=== PATIENT | male | born 1965 | race Two or more races ===

== ENCOUNTER 2021-02-11 11:16 | Inpatient (IN) | payer OTHER ==
[2021-02-11] VITALS (21 sets, daily range): BP systolic 125–171; BP diastolic 65–104
[~2021-02-11] VITALS: Ht 167.6 cm; Wt 814.2 kg
[2021-02-11] MEDS ORDERED: INSU100V3 SQ (12:23)
[2021-02-11] MEDS ORDERED: ZINC1CAP3 PO (12:23)
[2021-02-11] MEDS ORDERED: HYDR4TAB4 PO (12:23)
[2021-02-11] MEDS ORDERED: ASCO-495 PO (12:23)
[2021-02-11] MEDS ORDERED: DEXT50DI8 IV (12:23)
[2021-02-11] MEDS ORDERED: ACET-868 PO (12:23)
[2021-02-11] MEDS ORDERED: MULT-24 PO (12:23)
[2021-02-11] MEDS ORDERED: CYAN-51 PO (12:23)
[2021-02-11] MEDS ORDERED: MUPI22OI7 TP (12:23)
[2021-02-11] MEDS ORDERED: ATEN25TA PO (12:23)
[2021-02-11] MEDS ORDERED: POLY17PO4 PO (12:23)
[2021-02-11] MEDS ORDERED: NUT.237L28 PO (12:23)
[2021-02-11] MEDS ORDERED: BLOO-668 IN (12:23)
[2021-02-11] MEDS ORDERED: NALO0.4V2 IV (12:23)
[2021-02-11] MEDS ORDERED: VANC1.2524 IV (12:23)
[2021-02-11] MEDS ORDERED: FAMO20TA8 PO (12:23)
[2021-02-11] MEDS ORDERED: ATOR40TA PO (12:23)
[2021-02-11] MEDS ORDERED: IV NS 0.9% 1,000 ML ONE (13:18)
[2021-02-11] MEDS ORDERED: IV SET PRIMARY PUMP SET 1 EA INFUS.SET MC ONE (13:18)
[2021-02-11] MEDS ORDERED: IODIXANOL 150 ML IV ONE (13:19)
[2021-02-11] MEDS ORDERED: LIDOCAINE HCL/MPF 1% 30 ML VIAL IJ ONE (13:19)
[2021-02-11 13:29] LABS: BASOPHILS # (AUTO) 0.1 /CMM (0.0-0.2); BASOPHILS % (AUTO) 1.3 % (0.0-2.0); EOSINOPHILS % (AUTO) 0.6 % (0.0-6.0); HEMATOCRIT 27 % (39-51); HEMOGLOBIN 8.6 g/dL (13.5-17.5); LYMPHOCYTES # (AUTO) 0.9 /CMM (0.8-4.8); LYMPHOCYTES % (AUTO) 9.8 % (20.0-44.0); MEAN CORPUSCULAR HGB CONC 32 g/dl (31.0-36.0); MEAN CORPUSCULAR VOLUME 77 fL (80-96); MONOCYTES # (AUTO) 0.5 /CMM (0.1-1.30); MONOCYTES % (AUTO) 5.8 % (2.0-12.0); NEUTROPHILS # (AUTO) 7.2 /CMM (1.8-8.9); NEUTROPHILS % (AUTO) 82.5 % (43.0-81.0); PLATELET COUNT (AUTO) 590 /CMM (150-450); RED BLOOD CELL COUNT(AUTO) 3.54 MIL/uL (4.5-6.0); WHITE BLOOD COUNT (AUTO) 8.8 K/uL (4.3-11.0)
[2021-02-11 13:46] LABS: CALCIUM, SERUM 8.7 mg/dL (8.5-10.1); CREATININE 1.4 mg/dL (0.6-1.3); POTASSIUM 4.2 mmol/L (3.5-5.1)
[2021-02-11] MEDS ORDERED: FENTANYL PF 100MCG/2ML AMPUL ONE (14:19)
[2021-02-11] MEDS ORDERED: MIDAZOLAM HCL 2 MG/2ML VIAL ONE (14:19)
[2021-02-11] MEDS ORDERED: hydrALAZINE HCL IV 20 MG VIAL ONE (14:26)
[2021-02-11] MEDS ORDERED: NICARDIPINE IN DEXTROSE,ISO-OS 200 ML IV ONE (14:37)
[2021-02-11] MEDS ORDERED: IODIXANOL 320MG/ML 50 ML IV ONE (14:48)
[2021-02-11] MEDS ORDERED: HEPARIN SODIUM, PORCINE 5000 UNITS/1 ML VIAL ONE (14:50)
[2021-02-11] MEDS ORDERED: HEPARIN SODIUM, PORCINE 1,000 UNIT/ML VIAL ONE (14:50)
[2021-02-11] MEDS ORDERED: CEFAZOLIN 2 GM in IV D5W 100 ML IV ONE (15:00)
--- NOTE | 2021-02-11 16:30 | NUR ---
RN/ICU-RECEIVED PT. FROM ACCOUNT EXECUTIVE SALES REPRESENTATIVE, BY MARCELA ACCOMPANIED BY ACCOUNT EXECUTIVE SALES REPRESENTATIVE TEAM, PER ACLS PROTOCOL. S/P BALLOON ANGIO, RIGHT POPLITEAL ARTERY .PT. IS AWAKE, ALERT,EXPRESSIVE OF NEEDS. BREATHING SPONTANEOUSLY TO ROOM AIR. SATS.-95%. EKG-SR W/ HR-85/MIN. BP-166/84. ON CARDENE DRIP AT 5MG/HR TO KEEP SBP>180. WILL TITRATE ACCORDINGLY PER PROTOCOL. NOTED TO HAVE RIGHT FOOT WD, INTACT W/ OCCLUSIVE DRESSING, NOT SEEN AT THE TIME.W/ LEFT LEG OLD, SCABBED, BROWN IN COLOR. NOTED LEFT FEMORAL SITE INTACT W/ PRESSURE CLEAR DRESSING. NO HEMATOMA, BLEEDING OR SWELLING NOTED. LEFT PEDAL PULSES AUDIBLE BY DOPPLER, WARM AND COLOR WNL.RIGHT PEDAL PULSES ARE WEAK AND PALPABLE. WARM ,COLOR WNL. AFEBRILE. WILL CONTINUE TO MONITOR PER PROTOCOL.
--- NOTE | 2021-02-11 16:48 | NUR ---
MS/RN NOTE PATIENT WAS TRANSFERRED TO ICU AFTER ANGIOGRAM OF RLE, REPORT/BELONGINGS GIVEN TO ICU NURSE.
[2021-02-11] MEDS ORDERED: MAG HYDROX/AL HYDROX/SIMETH 30 ML UDC PO PRN (17:00)
[2021-02-11] MEDS ORDERED: ACETAMINOPHEN 325 MG TABLET PO PRN (17:00)
[2021-02-11] MEDS ORDERED: HYDROMORPHONE HCL 2 MG TABLET PO PRN (17:00)
[2021-02-11] MEDS ORDERED: ONDANSETRON HCL/PF 4 MG/2 ML VIAL IVP PRN (17:00)
[2021-02-11] MEDS ORDERED: MAGNESIUM HYDROXIDE 30 ML UDC PO PRN (17:00)
[2021-02-11] MEDS ORDERED: Z GUARD REMEDY 2 OZ OINT TP PRN (17:00)
[2021-02-11] MEDS ORDERED: NICARDIPINE IN NACL, ISO-OSM 200 ML IV PRN (17:30)
[2021-02-11] MEDS ORDERED: CLOPIDOGREL BISULFATE 75 MG TABLET PO ONE (17:30)
[2021-02-11] MEDS ORDERED: MORPHINE SULFATE INJ 4 MG/ML DISP.SYRIN IV PRN (17:30)
[2021-02-11] MEDS ORDERED: MORPHINE SULFATE INJ 2 MG/ML DISP.SYRIN IV PRN (17:30)
[2021-02-11] MEDS ORDERED: HYDROCODONE/APAP 5/325MG TABLET PO PRN (17:30)
[2021-02-11 17:38] LABS: BASOPHILS # (AUTO) 0.1 /CMM (0.0-0.2); BASOPHILS % (AUTO) 1.1 % (0.0-2.0); EOSINOPHILS % (AUTO) 0.4 % (0.0-6.0); HEMATOCRIT 28 % (39-51); HEMOGLOBIN 9.1 g/dL (13.5-17.5); LYMPHOCYTES # (AUTO) 0.8 /CMM (0.8-4.8); LYMPHOCYTES % (AUTO) 9.7 % (20.0-44.0); MEAN CORPUSCULAR HGB CONC 32 g/dl (31.0-36.0); MEAN CORPUSCULAR VOLUME 77 fL (80-96); MONOCYTES # (AUTO) 0.5 /CMM (0.1-1.30); MONOCYTES % (AUTO) 6.5 % (2.0-12.0); NEUTROPHILS # (AUTO) 6.9 /CMM (1.8-8.9); NEUTROPHILS % (AUTO) 82.3 % (43.0-81.0); PLATELET COUNT (AUTO) 606 /CMM (150-450); RED BLOOD CELL COUNT(AUTO) 3.69 MIL/uL (4.5-6.0); WHITE BLOOD COUNT (AUTO) 8.3 K/uL (4.3-11.0)
[2021-02-11] MEDS: VANCOMYCIN 1 GM in IV D5W 250ml IV SCH (17:41)
[2021-02-11 17:43] LABS: CALCIUM, SERUM 8.7 mg/dL (8.5-10.1); CREATININE 1.4 mg/dL (0.6-1.3); POTASSIUM 3.9 mmol/L (3.5-5.1)
[2021-02-11] MEDS: ASPIRIN 81 MG TAB.CHEW PO SCH (17:43)
[2021-02-11 17:49] LABS: ALBUMIN 1.6 g/dL (3.4-5.0); BILIRUBIN,TOTAL 0.3 mg/dL (0.2-1.0); TOTAL PROTEIN, SERUM 7.1 g/dL (6.4-8.2)
[2021-02-11] MEDS ORDERED: ATROPINE SULFATE 1 MG/10 ML DISP.SYRIN IV PRN (18:00)
--- NOTE | 2021-02-11 18:00 | NUR ---
RN/ICU-D. STAHL ACNP HERE TO ASSESS PT. WITH ORDER TO WEAN CARDENE TO OFF PAU. TO KEEP SBP<180. LATEST BP-157/65, HR-88/MIN. CARDENE AT 2.5 MG/HR. DC/D PER ACNP ORDER.
[2021-02-11] MEDS ORDERED: hydrALAZINE HCL IV 20 MG VIAL IV PRN (18:30)
[2021-02-11] MEDS ORDERED: DEXTROSE 50%-WATER 50 ML DISP.SYRIN IV PRN (19:00)
[2021-02-11] MEDS: MUPIROCIN OINT 2% 22 GM TUBE TP SCH (21:53)
[2021-02-11] MEDS ORDERED: ATORVASTATIN 40 MG TABLET PO SCH (22:00)
[2021-02-11] MEDS ORDERED: GLUCERNA SHAKE 237 ML CAN PO SCH (22:00)
[2021-02-11] MEDS: BLOOD SUGAR DIAGNOSTIC 1 EACH STRIP IN SCH (22:01)
[2021-02-11] MEDS: INSULIN REGULAR, HUMAN 100 UNIT/ML 3 ML VIAL SQ PRN (22:03)
--- NOTE | 2021-02-11 22:30 | NUR ---
RN/ICU- PT. RIGHT FOOT DRESSING OPENED AND ASSESSMENT DONE. NOTED TO HAVE RIGHT GREATER TOE AMPUTATION SITE WD AND RIGHT FOOT PLANTAR AREA, NECROTIC. PHOTOS TAKEN. INITIAL TREATMENT DONE. REFER TO WOUND PHOTO AND SKIN PROBLEM ASSESSMENT FOR DETAILS.
--- NOTE | 2021-02-11 23:02 | NUR ---
RN/ICU-COMPLAINED OF RIGHT FOOT WOUND, 06/04, JOSE CRUZ MEDRu W/ MORPHINE 2 MG SIVP, WILL REASSESS FOR PRN EFFECTIVENESS
--- NOTE | 2021-02-11 23:20 | NUR ---
RN/ICU- PT. STABLE, LEFT FOOT PEDAL PULSES, WARM, PINK, W/ PULSES + BY DOPPLER. W/ PAIN SCALE 3/10 RIGHT FOOT. VSS. REPORT GIVEN TO RN. Yaquelin WOODRUFF
--- NOTE | 2021-02-11 23:25 | NUR ---
RN NOTE REPORT RECEIVED FROM SANGEETA VALLE, PATIENT IN BED, AO X4, IN NO S/SX OF ACUTE DISTRESS AT THIS TIME. NO SOB NOTED. PATIENT'S BREATHING IS EVEN AND UNLABORED, SATURATION 97% ON ROOM AIR, SR ON THE MONITOR, HR IS 75. NOTED LILLY PICC LINE, CLOGGED/NOT WORKING, AND R HAND PERIPHERAL LINE 20G, PATENT AND FLUSHING WELL, NO S/S OF INFECTION OR INFILTRATION, WITH IV FLUID OF D5NS INFUSING AT 75 ML/HR. PATIENT IS CONTINENT WITH URINAL AT BEDSIDE. NOTED WOUND DRESSING AT R FOOT, AND POST OP SITE AT L FEMORAL DRY AND INTACT. SAFETY MEASURES IMPLEMENTED. PATIENT BED ALARM IS ON. HEAD OF BED ELEVATED. BED IS LOCKED, IN LOWEST POSITION AND SIDE RAILS UP. CALL LIGHT WITHIN REACH OF THE PATIENT. WILL CONTINUE TO MONITOR AND REASSESS FOR ANY CHANGES.
[2021-02-12] VITALS (30 sets, daily range): BP systolic 135–181; BP diastolic 66–96
[2021-02-12 04:53] LABS: BASOPHILS # (AUTO) 0.1 /CMM (0.0-0.2); BASOPHILS % (AUTO) 1.4 % (0.0-2.0); EOSINOPHILS % (AUTO) 1.3 % (0.0-6.0); HEMATOCRIT 23 % (39-51); HEMOGLOBIN 7.6 g/dL (13.5-17.5); LYMPHOCYTES % (AUTO) 14.1 % (20.0-44.0); MEAN CORPUSCULAR HGB CONC 33 g/dl (31.0-36.0); MEAN CORPUSCULAR VOLUME 76 fL (80-96); MONOCYTES # (AUTO) 0.8 /CMM (0.1-1.30); MONOCYTES % (AUTO) 10.6 % (2.0-12.0); NEUTROPHILS # (AUTO) 5.3 /CMM (1.8-8.9); NEUTROPHILS % (AUTO) 72.6 % (43.0-81.0); PLATELET COUNT (AUTO) 534 /CMM (150-450); RED BLOOD CELL COUNT(AUTO) 3.02 MIL/uL (4.5-6.0); WHITE BLOOD COUNT (AUTO) 7.3 K/uL (4.3-11.0)
[2021-02-12] MEDS: IV D5/ 0.9% NACL 1,000 ML IV PRN ×2 (05:00→16:52)
[2021-02-12 05:12] LABS: BILIRUBIN,TOTAL 0.3 mg/dL (0.2-1.0); CALCIUM, SERUM 8.3 mg/dL (8.5-10.1); CREATININE 1.2 mg/dL (0.6-1.3); MAGNESIUM 1.9 mg/dL (1.8-2.4); POTASSIUM 3.4 mmol/L (3.5-5.1); TOTAL PROTEIN, SERUM 6.3 g/dL (6.4-8.2)
[2021-02-12 05:21] LABS: ALBUMIN 1.4 g/dL (3.4-5.0)
--- NOTE | 2021-02-12 07:15 | NUR ---
RN INITIAL NOTES RECEIVED PT ASLEP, EASY TO AROUSE. ON ROOM AIR. NO SOB NOTED. NO SIGNS OF PAIN NOTED. IVF INFUSING. DRESSING ON RIGHT FOOT NOTED, CLEAN AND DRY. BLE ELEVATED. PT COMFORTABLE. CALL LIGHT WITHIN REACH. WILL MONITOR
--- NOTE | 2021-02-12 07:19 | NUR ---
WOUND CARE CONSULT: PT PRESENTS WITH DRY INTACT DRESSING TO RT FOOT, DISCOLORATION TO LEFT 5TH TOE AND TO LEFT LOWER LEG AND ANKLE AREA, PRESENT ON ADMISSION. PT NOTED TO HAVE BONY SACRAL AREA WITH SACRAL DIMPLE. RECOMMENDATIONS MADE FOR SKIN PROTECTION. DISCUSSED WITH NURSING STAFF. DEFER TO SURGEON FOR RT LOWER EXTREMITY. HEELS FLOATED. MD IN AGREEMENT WITH PLAN OF CARE. Addendum: 02/12/21 at 0723 by GABRIEL SPENCE WNDNU PT IS ON [facility] ISOFLEX LOW AIRLOSS BED.
[2021-02-12] MEDS ORDERED: PANTOPRAZOLE 40 MG TABLET.DR PO SCH (07:30)
[2021-02-12] MEDS: BLOOD SUGAR DIAGNOSTIC 1 EACH STRIP IN SCH ×3 (08:02→17:23)
[2021-02-12] MEDS: ASPIRIN 81 MG TAB.CHEW PO SCH (08:19)
[2021-02-12] MEDS: MUPIROCIN OINT 2% 22 GM TUBE TP SCH (08:20)
[2021-02-12] MEDS: INSULIN REGULAR, HUMAN 100 UNIT/ML 3 ML VIAL SQ PRN ×3 (08:26→17:24)
[2021-02-12] MEDS: HYDROCODONE/APAP 5/325MG TABLET PO PRN ×2 (08:31→15:32)
[2021-02-12] MEDS ORDERED: POLYETHYLENE GLYCOL 3350 17 GM POWD.PACK PO SCH (09:00)
[2021-02-12] MEDS ORDERED: MULTIVITAMINS,THERAGRAN 1 UDTAB TABLET PO SCH (09:00)
[2021-02-12] MEDS ORDERED: ZINC SULFATE 220 MG CAPSULE PO SCH (09:00)
[2021-02-12] MEDS ORDERED: ASCORBIC ACID 250 MG TABLET PO SCH (09:00)
[2021-02-12] MEDS ORDERED: ATENOLOL 25 MG TABLET PO SCH (09:00)
[2021-02-12] MEDS ORDERED: CYANOCOBALAMIN 500 MCG TABLET PO SCH (09:00)
[2021-02-12] MEDS ORDERED: CLOPIDOGREL BISULFATE 75 MG TABLET PO SCH (09:00)
[2021-02-12] MEDS ORDERED: POTASSIUM CHLORIDE 20 MEQ TAB.PRT.SR PO SCH (11:30)
[2021-02-12] MEDS: VANCOMYCIN 1 GM in IV D5W 250ml IV SCH (17:44)
[2021-02-12] MEDS ORDERED: CLOP75TA15 PO (18:57)
[2021-02-12] MEDS ORDERED: ASPI-1169 PO (18:57)
--- NOTE | 2021-02-12 19:00 | NUR ---
RN CLOSING NOTES NO SIGNIFICANT CHANGE NOTED. PT REMAINS A/O. ON ROOM AIR. DENIES PAIN AT THIS TIME. IVF INFUSING. TOLERATING PO MEAL WELL. TX PROVIDED ORDERED. KEPT COMFORTABLE. FOR TRANSFER TO [facility], REPORT GIVEN TO TORI RICHARDSON. ALL PERTINENT INFO GIVEN. AWAITING FOR P/U.
--- NOTE | 2021-02-12 19:52 | NUR ---
ICU/APPLIED PSYCHOLOGY TEACHER PT WAS TRANSFERRED TO [facility] BED 321 VIA EMS. REPORT WAS GIVEN FROM THE DAY NURSE. UPDATES WAS GIVEN TO RECEIVING NURSE AT [facility], ABOUT PT WAS GIVEN HYDRALAZINE 10MG FROM DAY NURSE.
[2021-02-13] MEDS ORDERED: ASCORBIC ACID 500 MG TABLET PO SCH (09:00)
== END 2021-02-12 19:30 | DRG 181 ==
LOC: CATHLAB 11:16 → MED 11:18 → TELE 11:23 → ICU 16:03
PROVIDERS: ADMIT Nurse Practitioner Family; ATTEND Family Medicine
PROC: 047R3ZZ Dilation of Right Posterior Tibial Artery, Percutaneous Approach (ICD-10-PCS; principal; 2021-02-11)
PROC: 047M3ZZ Dilation of Right Popliteal Artery, Percutaneous Approach (ICD-10-PCS; 2021-02-11)
PROC: B41DYZZ Fluoroscopy of Aorta and Bilateral Lower Extremity Arteries using Other Contrast (ICD-10-PCS; 2021-02-11)
DX: E11.52 Type 2 diabetes mellitus with diabetic peripheral angiopathy with gangrene (principal); N17.0 Acute kidney failure with tubular necrosis; A48.0 Gas gangrene; E43 Unspecified severe protein-calorie malnutrition; E11.69 Type 2 diabetes mellitus with other specified complication; M86.171 Other acute osteomyelitis, right ankle and foot; I10 Essential (primary) hypertension; Z89.422 Acquired absence of other left toe(s); Z89.411 Acquired absence of right great toe; Z83.3 Family history of diabetes mellitus; Z90.49 Acquired absence of other specified parts of digestive tract; Z79.4 Long term (current) use of insulin; Z79.899 Other long term (current) drug therapy; E66.9 Obesity, unspecified; E87.1 Hypo-osmolality and hyponatremia; E87.6 Hypokalemia
CPT/HCPCS: 36415; 75625; 75630-TC; 80048-TC; 80053-TC; 80202-TC; 82962-TC; 83735-TC; 85025-TC; 85610-TC; 85730-TC; 94799-TC; A6253; C1725; C1769; C1887; C1894; G0378; G0500; J0360; J0690; J1644; J1815; J2250; J2270; J3010; J3370; J3490; J7030; J7042; J7060; Q9967